=== PATIENT | female | born 1995 | race Caucasian/White ===

== ENCOUNTER 2017-09-27 11:41 | Emergency (ER) | payer MEDICAID ==
[2017-09-27 12:06] VITALS: TEMP 97.9
[2017-09-27] MEDS ORDERED: HYDROmorphONE/DILAUDID 1 MG/ML INJ IVP ONE ×2 (13:34→15:51)
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
[2017-09-27] MEDS ORDERED: GADOBUTROL 10 ML VIAL IVP ONE (13:58)
[2017-09-27 15:53] VITALS: RESP 16
[2017-09-27] MEDS ORDERED: HYDROmorphONE/DILAUDID 2 MG TAB PO ONE (19:03)
[2017-09-27] MEDS ORDERED: DIAZEPAM 5 MG TAB PO ONE (19:03)
[2017-09-27] MEDS ORDERED: HYDROmorphONE/DILAUDID 2 MG TAB ONE (19:28)
[2017-09-27 20:06] VITALS: BP 107/60; PULSE 71; O2SAT 95
== END 2017-09-27 20:04 | disposition home or self-care (01) ==
DX: R20.2 Paresthesia of skin (principal); Z79.82 Long term (current) use of aspirin
CPT/HCPCS: 96374; A9585; J1170